=== PATIENT | female | born 1955 | race Caucasian/White ===

== ENCOUNTER 2020-02-07 17:14 | Observation (INO) | payer BC, SELFPAY ==
[2020-02-07 17:20] VITALS: BMI 22.6
[2020-02-07 17:35] VITALS: BP 108/68; PULSE 86; RESP 18; TEMP 36.7; O2SAT 99
--- NOTE | 2020-02-07 17:57 | ECG_ITS ---
Measurements Intervals [place] Rate: 72 P: 55 IA: 143 QRS: 45 QRSD: 94 T: 50 QT: 425 QTc: 467 SINUS RHYTHM NONSPECIFIC T-WAVE ABNORMALITY Compared to ECG 02/07/2020 17:34:43 T-wave abnormality now present ST (T wave) deviation no longer present Electronically Signed On 02-08-2020 11:14:05 CDT by Kenneth Gómez M.D. [id number]
--- NOTE | 2020-02-07 17:57 | XR_ITS ---
WS: [id number] XR chest 1V portable [id number] REASON FOR EXAM: chest pain FINDINGS: The heart and mediastinal interfaces normal. The lung lan are well aerated there are scattered emphysematous changes noted. The overall appeara nce the chest is similar to 09/02/2017. The hilum and apices normal. No pneumothorax or pleural effusion pulmonary edema or mass effect. No osseous abnormalities. XR/XR chest 1V portable [id number] IMPRESSION: Low-grade emphysema this changes
--- NOTE | 2020-02-07 18:04 | ED_ITS ---
HPI - Chest Pain General: Chief Complaint: Chest Pain Stated Complaint: high hr/dizzy/weak Time Seen by Provider: 02/07/20 17:42 Source: patient Mode of arrival: ambulatory Limitations: no limitations History of Present Illness: HPI narrative: Patient is a 64-year-old female patient who presents to the emergency department with complaints of tachycardia, chest pressure, dizziness. She says she has a history of anxiety and is visiting her father from out of town to care for him. She was standing in the kitchen and said she was thinking about the list of all the things she has to do when her heart rate started to go up. Heart rate went up to 150. Because of this she was concerned and presented to the emergency department for evaluation. Of note is that this lady has been on cetirizine with pseudoephedrine for about 2 years. She takes this medication every day complaint: chest discomfort Timing of current episode: now resolved Pain location: substernal Pain radiation: none Severity: mild Relieving factors: nothing Exacerbating factors: nothing Associated symptoms: Reports palpitations; Deny abdominal pain, dyspnea, fever(s), nausea or vomiting Treatment prior to arrival: none Review of Systems General: Reports: 10 or more systems reviewed and unremarkable except in HPI and below Const: Denies: fever(s), chills or body aches ENMT: Denies: throat pain, enlarged tonsils, odynophagia, hoarseness, mouth pain or swelling of lips/tongue Card: Reports: chest pain, palpitations and lightheadedness; Denies: irregular heart rhythm, edema or swelling of feet/ankles Resp: Denies: dyspnea, productive cough or non-productive cough GI: Denies: abdominal pain, nausea or vomiting : Denies: flank pain, difficulty voiding, dysuria, urinary frequency, urinary urgency or urinary hesitancy Musc: Denies: neck pain, back pain or extremity swelling Skin/Breast: Denies: rash, pruritus or erythema Neuro: Denies: headache(s), numbness in extremities or weakness in extremities Endo: Denies: polyuria, polydipsia or tired all the time [facility] ED PFSH: Medical History (Updated 02/08/20 @ 00:02 by Marlene Benjamin MD, [facility]) Anxiety Hypothyroidism Mixed connective tissue disease Surgical History (Updated 02/07/20 @ 21:40 by Surjit Fox MD) History of appendectomy History of hernia surgery Family History (Updated 02/07/20 @ 21:40 by Surjit Fox MD) Denies family history of Diabetes Clotting disorder Dementia Social History (Updated 02/07/20 @ 21:40 by Srujit Fox MD) Smoking and tobacco status: never smoked Alcohol intake: never Substance/Drug Use: never Household members: spouse Housing: House 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 Physical Exam Const: COMMON NORMALS: no acute distress, average body habitus, patient oriented x3, no limitations, healthy appearing, alert and well nourished HENMT: COMMON NORMALS: normocephalic, atraumatic and moist oral mucous membranes HEAD & SCALP: normocephalic and atraumatic Eye: COMMON NORMALS: Equal, round and reactive pupils present, EOMs intact bilaterally, conjunctivae normal and no scleral icterus CONJUNCTIVA: Yes conjunctivae normal PUPIL: Yes Equal, round and reactive pupils present Neck/C-Spine: COMMON NORMALS: no meningeal signs and no JVD Resp: COMMON NORMALS: normal respiratory effort, No retractions, No use of accessory muscles, clear to auscultation bilaterally and percussion normal AUSCULTATION: clear to auscultation bilaterally PERCUSSION: percussion normal Cardio: COMMON NORMALS: no JVD, regular rate, regular rhythm, S1 normal heart sound present, S2 normal heart sound present, No gallops present (Cardio), No clicks present (Cardio), No murmurs present (Cardio), No rub (Cardio) and Peripheral pulses 2+ throughout RATE: regular rate RHYTHM: regular rhythm HEART SOUNDS: S1 normal heart sound present and S2 normal heart sound present PERIPHERAL PULSES: Peripheral pulses 2+ throughout GI: COMMON NORMALS: Normal to inspection, nondistended, normoactive bowel sounds present, Soft to palpation, non-tender, No hepatosplenomegaly present, no masses and no bruits PALPATION: Yes Soft to palpation and Yes No hepatosplenomegaly present : COMMON NORMALS: Yes no CVA tenderness BLADDER/KIDNEY EXAM: Yes no CVA tenderness Back/Pelvis: COMMON NORMALS: no CVA tenderness Extremity: COMMON NORMALS: normal to inspection, full ROM, capillary refill normal, no calf tenderness and no pedal edema Neuro: COMMON NORMALS: patient oriented x3 SENSORIUM/ORIENTATION: Yes alert MENINGEAL SIGNS: Yes no meningeal signs Skin: COMMON NORMALS: no rashes or lesions noted, no wounds, turgor normal, no jaundice, no petechiae and no mottling GENERAL SKIN EXAM: no rashes or lesions noted and turgor normal Course Reevaluation(s): Reevaluation #1: Discussed her lab and imaging findings with her. Her 2-hour delta troponin is significantly elevated and consistent with a non-STEMI. Advised that she will need anticoagulation and further work-up. She will need to be admitted to the hospital. The patient was not expecting a diagnosis but was in agreement with the plan. Time: 20:55 Consultations: Consultation #1: Dr. Fox, hospitalist. He kindly accepted the patient to his service Time: 21:00 Vital Signs: Vital signs: Vital Signs Temperature 98.1 F 02/07/20 23:50 Pulse Rate 74 02/07/20 23:50 Respiratory Rate 22 H 02/07/20 23:50 Blood Pressure 117/71 02/07/20 23:50 Pulse Oximetry 94 02/07/20 23:50 MDM - Chest Pain MDM Narrative: Medical decision making narrative: 64-year-old female patient with no prior cardiac history presents to the emergency department with chest pain, palpitations, and tachycardia. Tachycardia resolved by the time she got to the emergency department. Evaluation in the emergency department is consistent with a non-STEMI with a significantly elevated 2-hour delta troponin. She is therefore being admitted for management and further work-up of her non- STEMI. Differential Diagnosis: Cardiac arrest differential diagnosis: Likely acute massive pulmonary embolism, acute respiratory failure and acute myocardial infarction Medical Records: Attestation: I reviewed the patient's medical records. Lab Data: Attestation: I reviewed the patient's lab results. Labs: Lab Results 02/07/20 02/07/20 02/07/20 Range/Units 18:25 18:25 18:25 WBC 6.2 (4.0-10.0) 10^3/ uL RBC 3.44 L (4.1-5.3) 10^6/u L Hgb 11.2 L (11.5-15.3) g/dL Hct 34.1 L (37.0-47.0) % MCV 99.1 H (81-99) fL MCH 32.6 (28.0-34.0) pg MCHC 32.8 (30.0-36.0) g/dL RDW 12.6 (12.1-15.1) % Plt Count 251 (130-400) 10^3/c mm MPV 9.6 (7.4-10.4) fL Neut % (Auto) 60.6 % Lymph % (Auto) 28.6 % Leon % (Auto) 8.0 % Eos % (Auto) 1.9 % Baso % (Auto) 0.6 % Neut # (Auto) 3.8 (1.8-7.7) 10^3/u L Lymph # (Auto) 1.8 (0.8-4.8) 10^3/u L Leon # (Auto) 0.5 (0.2-0.9) 10^3/u L Eos # (Auto) 0.1 (0.0-0.8) 10^3/u L Baso # (Auto) 0.0 (0.0-0.1) 10^3/u L Nucleated RBC % (a uto) 0 % Nucleated RBCs # 0.0 /100WBC Sodium 134 L (136-145) mmol/L Potassium 4.4 (3.5-5.1) mmol/L Chloride 98 (98-107) mmol/L Carbon Dioxide 24 (22-29) mmol/L Anion Gap 16.4 (5-19) BUN 14 (8-23) mg/dL Creatinine 0.9 (0.5-0.9) mg/dL GFR Calculation 63.4 L (90-130) mL/min Glucose 88 (65-115) mg/dL Calculated Osmolal ity 274 L (285-295) mOsm/k g Calcium 9.6 (8.5-10.5) mg/dL Total Bilirubin 0.2 (0.15-1.2) mg/dL AST 23 (0-32) U/L ALT 14 (0-33) U/L Alkaline Phosphata se 51 (35-105) IU/L Troponin T Baselin e 11 H (0-10) ng/mL Troponin T 120 Min [place] (0-10) ng/mL Delta Troponin T (0-10) ABS# Total Protein 6.4 L (6.6-8.7) g/dL Albumin 4.1 (3.5-5.2) g/dL Globulin 2.3 (1.3-4.6) g/dL Lipase 65 H (13-60) U/L TSH 2.14 (0.27-4.20) uIU/ mL 02/07/20 Range/Units 20:22 WBC (4.0-10.0) 10^3/ uL RBC (4.1-5.3) 10^6/u L Hgb (11.5-15.3) g/dL Hct (37.0-47.0) % MCV (81-99) fL MCH (28.0-34.0) pg MCHC (30.0-36.0) g/dL RDW (12.1-15.1) % Plt Count (130-400) 10^3/c mm MPV (7.4-10.4) fL Neut % (Auto) % Lymph % (Auto) % Leon % (Auto) % Eos % (Auto) % Baso % (Auto) % Neut # (Auto) (1.8-7.7) 10^3/u L Lymph # (Auto) (0.8-4.8) 10^3/u L Leon # (Auto) (0.2-0.9) 10^3/u L Eos # (Auto) (0.0-0.8) 10^3/u L Baso # (Auto) (0.0-0.1) 10^3/u L Nucleated RBC % (a uto) % Nucleated RBCs # /100WBC Sodium (136-145) mmol/L Potassium (3.5-5.1) mmol/L Chloride (98-107) mmol/L Carbon Dioxide (22-29) mmol/L Anion Gap (5-19) BUN (8-23) mg/dL Creatinine (0.5-0.9) mg/dL GFR Calculation (90-130) mL/min Glucose (65-115) mg/dL Calculated Osmolal ity (285-295) mOsm/k g Calcium (8.5-10.5) mg/dL Total Bilirubin (0.15-1.2) mg/dL AST (0-32) U/L ALT (0-33) U/L Alkaline Phosphata se (35-105) IU/L Troponin T Baselin e (0-10) ng/mL Troponin T 120 Min [place] 34.45 H (0-10) ng/mL Delta Troponin T 23.45 H* (0-10) ABS# Total Protein (6.6-8.7) g/dL Albumin (3.5-5.2) g/dL Globulin (1.3-4.6) g/dL Lipase (13-60) U/L TSH (0.27-4.20) uIU/ mL Imaging Data^: CXR: Attestation: I personally reviewed and interpreted this imaging study as follows: My impression: No consolidation, effusion, congestion. No acute findings. EKG Data^: EKG 1: Attestation: I personally reviewed and interpreted this EKG as follows: EKG interpretation date: 02/07/20 EKG interpretation time: 17:35 Prior EKG tracings: not available for review Interpretation: Normal sinus rhythm. Heart rate [address] depression V4 V5 V6 Discharge Plan Discharge Patient Disposition: Admitted As Inpatient Admit Provider: Surjit Fox Clinical Impression: Non-STEMI (non-ST elevated myocardial infarction) Condition: Stable Interventions: ED Discharge Assessment Last Done: 02/07/20 23:37 ED Charges Last Done: 02/07/20 23:37 Discharge Date/Time: 02/07/20 23:40 Coding Level of Care Code ED Cardroom Plastic Card Grader for Chg Fwd Exam Comprehensive
[2020-02-07 18:35] LABS: Basophils % 0.6 %; Eosinophils # 0.1 10^3/uL (0.0-0.8); Eosinophils % 1.9 %; Hematocrit 34.1 % (37.0-47.0); Hemoglobin 11.2 g/dL (11.5-15.3); Lymphocytes # 1.8 10^3/uL (0.8-4.8); Lymphocytes % 28.6 %; Mean Corpuscular HGB Conc 32.8 g/dL (30.0-36.0); Mean Corpuscular Hemoglobin 32.6 pg (28.0-34.0); Mean Corpuscular Volume 99.1 fL (81-99); Mean Platelet Volume 9.6 fL (7.4-10.4); Monocytes # 0.5 10^3/uL (0.2-0.9); Neutrophils # 3.8 10^3/uL (1.8-7.7); Neutrophils % 60.6 %; Nucleated Red Blood Cells % 0 %; Platelet Count 251 10^3/cmm (130-400); Red Blood Count 3.44 10^6/uL (4.1-5.3); Red Cell Distribution Width 12.6 % (12.1-15.1); White Blood Count 6.2 10^3/uL (4.0-10.0)
[2020-02-07 18:54] LABS: Troponin(5th) Baseline 11 ng/mL (0-10)
[2020-02-07 19:02] LABS: Alanine Aminotransferase 14 U/L (0-33); Albumin Level 4.1 g/dL (3.5-5.2); Alkaline Phosphatase 51 IU/L (35-105); Anion Gap 16.4 (5-19); Aspartate Amino Transferase 23 U/L (0-32); Blood Urea Nitrogen 14 mg/dL (8-23); Calcium 9.6 mg/dL (8.5-10.5); Carbon Dioxide 24 mmol/L (22-29); Chloride 98 mmol/L (98-107); Creatinine Clr Calc Pharmacy 62.3928; Globulin 2.3 g/dL (1.3-4.6); Glomerular Filtration Rate 63.4 mL/min (90-130); Glucose 88 mg/dL (65-115); Lipase 65 U/L (13-60); Osmolality Calculated 274 mOsm/kg (285-295); Potassium 4.4 mmol/L (3.5-5.1); Sodium 134 mmol/L (136-145); Thyroid Stimulating Hormone 2.14 uIU/mL (0.27-4.20); Total Bilirubin 0.2 mg/dL (0.15-1.2); Total Protein 6.4 g/dL (6.6-8.7)
--- NOTE | 2020-02-07 19:36 | PC.NURSE ---
UA was collected and sent to lab
--- NOTE | 2020-02-07 19:57 | ECG_ITS ---
Measurements Intervals [place] Rate: 84 P: 50 ID: [id number] QRS: 30 QRSD: 100 T: 47 QT: 424 QTc: 503 SINUS RHYTHM POSSIBLE LEFT ATRIAL ENLARGEMENT [-0.1mV P WAVE IN V1/V2] MODERATE ST DEPRESSION [0.05+ mV ST DEPRESSION] Compared to ECG 09/02/2017 18:01:32 ST (T wave) deviation now present Myocardial infarct finding no longer present Electronically Signed On 02-07-2020 21:02:41 CDT by Renae Lloyd M.D. [id number]
[2020-02-07 20:48] LABS: Troponin 5 2HR 34.45 ng/mL (0-10)
[2020-02-07 21:11] LABS: Troponin 5 2HR Delta 23.45 ABS# (0-10)
--- NOTE | 2020-02-07 21:11 | PM.HP ---
Providers/Chief Complaint Chief Complaint: high hr/dizzy/weak History of Present Illness Bing Garsia is a 64 year old female carries diagnosis of mixed connective tissue disorder, hypothyroidism came in with chief complaint of palpitations. 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 She considers herself fairly active for her age. She tries to eat healthy and is consistent with her medications. She is very careful in taking her anxiolytics and not to mix levothyroxine with it. Diagnostics in the ER revealed normal hemodynamics, EKG showing ST depression in V4 to V6, second troponin with significant delta, she was given first dose of therapeutic Lovenox in the ER At the time of interview heart rate is 90, normal sinus rhythm, normal hemodynamics, she is chest pain-free, Review of Systems Const: Denies: fever(s) or chills Eyes: Denies: change in vision ENMT: Denies: throat pain Card: Reports: palpitations; Denies: edema Resp: Denies: dyspnea GI: Denies: abdominal pain : Denies: flank pain Musc: Denies: neck pain Skin/Breast: Denies: rash Neuro: Denies: headache(s) Psych: Reports: anxiety Endo: Denies: polyuria Josue/Lymph: Denies: easy bruising All/Imm: Denies: urticaria Medications/Allergies Home Medications Medication Instructions Recorded Confirmed Last Taken Type cetirizine-pseudoephedrine 1 tab PO DAILY 02/07/20 02/07/20 02/07/20 History [Zyrtec-D] diphenhydramine HCl [Benadryl] 25 mg PO BEDTIME PRN 02/07/20 02/07/20 Unknown History escitalopram oxalate [Lexapro] 20 mg PO BID 02/07/20 02/07/20 02/07/20 History hydroxychloroquine 200 mg PO BID 02/07/20 02/07/20 02/07/20 History levothyroxine 150 mcg PO DAILY 02/07/20 02/07/20 02/07/20 History Allergies Allergy/AdvReac Type Severity Reaction Status Date / Time Penicillins Allergy ALGY-Hives Verified 02/07/20 17:36 PFSH Acute PFSH: Medical History (Updated 02/07/20 @ 21:42 by Surjit Fox MD) Anxiety Hypothyroidism Mixed connective tissue disease Surgical History (Updated 02/07/20 @ 21:40 by Surjit Fox MD) History of appendectomy History of hernia surgery Family History (Updated 02/07/20 @ 21:40 by Surjit Fox MD) Denies family history of Diabetes Clotting disorder Dementia Social History (Updated 02/07/20 @ 21:40 by Surjit Fox MD) Smoking and tobacco status: never smoked Alcohol intake: never Substance/Drug Use: never Household members: spouse Housing: House 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 Vitals/I&O/Wt Last Vital Signs Temp 98.0 F 02/07/20 17:35 Pulse 86 02/07/20 17:35 Resp 18 02/07/20 17:35 BP 108/68 02/07/20 17:35 Pulse Ox 99 02/07/20 17:35 Weight last 48 hrs Weight 63.503 kg Physical Exam Narrative: EXAM NARRATIVE: Head to toe examination Patient sitting comfortably in her bed without any active discomfort S1, S2, sinus tachycardia ranging between 90-1 10 Abdomen soft nontender nondistended bowel sound present No signs of CHF No neurological deficit Lungs are clear to auscultation EOMI, PERRLA No skin rash No lower extremity edema Appropriate mood and affect Dry buccal mucosal membrane Data : 02/07/20 18:25 02/07/20 18:25 A&P Assessment and plan (1) Palpitations: Status: Acute (2) Sinus tachycardia: Status: Acute (3) Dehydration: Status: Acute (4) Unstable angina: Status: Acute Additional A&P Information Palpitation with unstable angina Low risk for PE, no previous history of coronary We will check d-dimer She appears dehydrated which could be contributing to sinus tachycardia She is here full dose Lovenox in the ER currently chest pain-free EKG showing nonspecific ST depressions in V4 and V5, second troponin significant delta With get serial EKGs and wait for 6-hour troponin, load her with aspirin Plavix, check TSH and lipid pro Cardiolite stress test in the morning, Dehydration: We will keep her on half-normal saline fluid resuscitation Mixed connective tissue disorder with Enriqueta hypothyroidism Continue levothyroxine, check TSH, I would continue her Plaquenil for now Full code DVT prophylaxis: Lovenox full dose given in the ER, N.p.o. after mid Attestations Medical Necessity Statement*: Anticipating discharge in less than 48 hours needs cardiac stress test to rule out coronary ischemia Time Spent in Patient Care: 50 Coding Level of Care Code Acute Mechanics Handyman for Chg Fwd Diagnoses Palpitations R00.2 Sinus tachycardia R00.0 Dehydration E86.0 Unstable angina I20.0
[2020-02-07] MEDS: enoxaparin 60 mg/0.6 mL Syringe SUBCUT (21:35)
--- NOTE | 2020-02-07 23:30 | PC.NURSE ---
Patient arrived from ER via wheelchair and was placed on telemetry. Patient is alert and oriented, placed on telemetry. Patient oriented to the room, call light within reach, bed in low position, and side rails up x2. Will continue to monitor.
[2020-02-07 23:37] VITALS: BP 110/76; PULSE 82; RESP 18; O2SAT 99
[2020-02-07 23:49] LABS: D Dimer <= 0.27 ug/mIFEU (0-0.59); Thyroid Stimulating Hormone 5.18 uIU/mL (0.27-4.20)
[2020-02-07 23:50] VITALS: BP 117/71; PULSE 74; RESP 22; TEMP 36.7; O2SAT 94
[2020-02-07 23:52] VITALS: BMI 24.1
[2020-02-08] MEDS: aspirin 325 mg EC Tablet PO (00:06)
[2020-02-08] MEDS: clopidogrel 300 mg Tablet PO (00:06)
[2020-02-08 00:49] LABS: Troponin 5 6HR 34.93 ng/mL (0-10)
[2020-02-08] MEDS: sodium chloride 0.45% 1,000 ML 30 ML IV (00:52)
[2020-02-08 01:27] LABS: Troponin 5 6HR Delta 23.93 ng/L (0-12)
[2020-02-08 01:41] VITALS: PULSE 65
[2020-02-08 04:16] VITALS: BP 112/71; PULSE 71; RESP 14; TEMP 36.6; O2SAT 96
--- NOTE | 2020-02-08 06:00 | ECG_ITS ---
NAME OF STUDY: LEXISCAN SESTAMIBI STRESS TEST INDICATION: Chest Pain PROCEDURE: At the baseline, the blood pressure was 117/69 mmHg, oxygen saturation 97% with a heart rate of 84 bpm. The electrocardiogram showed normal sinus rhythm, normal axis with non specific ST depression and T wave inversion noted in lead II III, aVF, V5 and V6. The Lexiscan was infused over a period of 20 seconds. A total of 0.4 milligrams of Lexiscan was infused. The stress phase was continued for a total of 5 minutes. Heart rate at the end of the stress phase was 94 bpm, oxygen saturation 97% with a blood pressure 119/67 mmHg. The EKG at the peak infusion revealed 1/2-[address] depression and T wave inversion in inferolateral leads. Sestamibi was injected 20 seconds after the Lexiscan infusion. Blood pressure at the end of the recovery phase was 118/65 mmHg, oxygen saturation 98% with a heart rate of 97 beats per minute. CONCLUSION: 1. Equivocal EKG changes with LexiScan infusion given baseline ST-T wave changes. 2. No LexiScan induced chest pain or cardiac arrhythmia. 3. Normal blood pressure and heart rate response. 4. Sestamibi/sestamibi perfusion scan pending; see separate report. Electronically Signed On 02-08-2020 13:17:28 CDT by Lizzy Rock M.D. [id number]
--- NOTE | 2020-02-08 06:06 | PC.NURSE ---
End of Shift: Patient remains AxO x3. Patient had a uneventful shift and rested well. Patient is aware of stress test and has been NPO.
--- NOTE | 2020-02-08 07:00 | PC.NURSE ---
Bedside shift report performed with two RNs. Patient A/O, kept NPO for stress test. Patient does not have any specific needs or questions at this time.
[2020-02-08] MEDS: regadenoson 0.4 Mg/5 ml Syringe IVP (08:45)
[2020-02-08 08:48] VITALS: BP 127/57; PULSE 100
[2020-02-08 09:28] VITALS: BP 127/77; PULSE 79; RESP 20; TEMP 37; O2SAT 98
[2020-02-08] MEDS: escitalopram 10 mg Tablet 20 MG PO (09:29)
[2020-02-08] MEDS: hydroxychloroquine 200 mg Tablet PO (09:30)
[2020-02-08] MEDS: levothyroxine 150 mcg Tablet PO (09:30)
[2020-02-08] MEDS: aspirin 81 mg EC Tablet PO (09:30)
[2020-02-08] MEDS: atorvastatin 40 mg Tablet 80 MG PO (09:30)
[2020-02-08] MEDS: clopidogrel 75 mg Tablet PO (09:30)
[2020-02-08] MEDS: enoxaparin 60 mg/0.6 mL Syringe SUBCUT (09:32)
--- NOTE | 2020-02-08 10:22 | PC.CHAP ---
Pastoral Care Encounter/Spiritual Assessment Type of Contact [] Declined treasury associate visit [] Patient/Family/Request visit [] Outpatient visit [] Follow-up visit [] Physician referral [] Code/Alert [x] Routine visit [] Staff referral [] Actively dying [] Patient sleeping [] Family support [] [] Out of room [] Palliative care [] [] Receiving care in room [] Pre-surgical visit [] Trauma [] Long length of stay [] ICU visit [] Other: Relational/Emotional Strength [x] Patient feels connected with others/family/visitors/staff [] Distress [] Loneliness/isolation [] Abandonment Spirituality of Patient [x] Person of Lisa [x] Attends Quaker of their Lisa [x] Believes in Prayer [x] Reads Bible or Religion materials [] There are Spiritual issues to be addressed Glass Sander Belt Interventions [x] Prayer [x] Active listening x[] Non-anxious presence [x] Spiritual/emotional support [] Crisis/trauma care [x] Spiritual counseling [] Bereavement support [] Provided bereavement packet [] Provided Bible/devotional materials [] Provided toy/stuffed animal, coloring book to patient or family member [] Provided Communion [] Anointing/[place] [] Salvation [x] Completed spiritual assessment [] Other: Impact on Illness or Injury [] Angry [] Fearful [] Anxious [] Often cries [] Exhaustion [] Unable to work [] Unable to attend moravian [] Unable to walk/stand [] Unable to read [] Unable to drive [] Unable to eat/drink [] Unable to sleep [] Unable to be with family [] Patient intubated [x] Other: Summary Patient is a resident of [place] and is in [place] attending to her father. Patient is strong in her lisa and commitment to the [place] in her life. Time spent with patient 10 minutes
--- NOTE | 2020-02-08 11:25 | PC.NURSE ---
Dr. Bernal at bedside. Physician requests STAT Trop to evaluate if enzymes are still trending up. Nurse to continue to monitor.
--- NOTE | 2020-02-08 11:26 | P.PN_ITS ---
Vitals/I&O/Wt Last Vital Signs Temp 98.6 F 02/08/20 09:28 Pulse 79 02/08/20 09:28 Resp 20 H 02/08/20 09:28 BP 127/77 02/08/20 09:28 Pulse Ox 98 02/08/20 09:28 02/07/20 02/08/20 02/08/20 22:59 06:59 14:59 Intake Total 969 / 969 Balance 969 / 969 Weight last 48 hrs Weight 67.676 kg Weight 67.948 kg Weight 63.503 kg Data : 02/07/20 18:25 02/07/20 18:25 A&P Assessment and plan (1) Palpitations: Status: Acute (2) Sinus tachycardia: Status: Acute (3) Dehydration: Status: Acute (4) Unstable angina: Status: Acute Additional A&P Information Palpitation with unstable angina Low risk for PE, no previous history of coronary We will check d-dimer She appears dehydrated which could be contributing to sinus tachycardia She is here full dose Lovenox in the ER currently chest pain-free EKG showing nonspecific ST depressions in V4 and V5, second troponin significant delta With get serial EKGs and wait for 6-hour troponin, load her with aspirin Plavix, check TSH and lipid pro Cardiolite stress test in the morning, Dehydration: We will keep her on half-normal saline fluid resuscitation Mixed connective tissue disorder with Enriqueta hypothyroidism Continue levothyroxine, check TSH, I would continue her Plaquenil for now Full code DVT prophylaxis: Lovenox full dose given in the ER, N.p.o. after mid Coding Level of Care Code Acute Staking Technician for Chg Fwlibertad Diagnoses Palpitations R00.2 Sinus tachycardia R00.0 Dehydration E86.0 Unstable angina I20.0
[2020-02-08 12:13] LABS: C Reactive Protein 0.5 mg/L (0.0-4.9)
[2020-02-08 12:16] LABS: Troponin T (5th) Once 17 ng/mL (0-10)
[2020-02-08 12:23] LABS: Free T4 Free Thyroxine 1.42 ng/dL (0.82-1.77)
[2020-02-08 12:53] LABS: Erythrocyte Sedimentation Rate 23 mm/hr (0-15)
[2020-02-08 13:00] VITALS: BP 124/81; PULSE 75; RESP 18; O2SAT 96
--- NOTE | 2020-02-08 13:48 | P.DS_ITS ---
Discharge Providers Date of Admission: 02/07/20 21:14 Date of Discharge: February 08, 2020 Attending Provider at Admission: Surjit Fox MD Attending Provider at Discharge: Poncho Bernal MD Diagnoses at Discharge Discharge Diagnosis (1) Palpitations: Status: Acute (2) Sinus tachycardia: Status: Acute (3) Dehydration: Status: Acute (4) Unstable angina: Status: Acute (5) Anxiety: Status: Acute (6) Mixed connective tissue disease: Status: Acute Reason for Visit Reason for Visit: high hr/dizzy/weak Hospital Course Discharge Summary: Bing Garsia is a 64 year old female carries diagnosis of mixed connective tissue disorder, hypothyroidism came in with chief complaint of palpitations. 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 She considers herself fairly active for her age. She tries to eat healthy and is consistent with her medications. She is very careful in taking her anxiolytics and not to mix levothyroxine with it. Diagnostics in the ER revealed normal hemodynamics, EKG showing ST depression in V4 to V6, second troponin with significant delta, she was given first dose of therapeutic Lovenox in the ER. She was admitted to [facility] and underwent Lexiscan stress test on 02/07 which was negative for any active ischemia. She did not have any event of tachycardia while admitted and Telemetry also showed NSR. Due to her h/o Enriqueta's and connective tissue disorder ESRF, CRP and thyroid functions were checked which were all in normal limits. Due to her presenting c/o palpitations she has been arranged for event monitor to r/o arrythmia. She is being discharged in hemodynamic stable condition with advice to follow up with her PCP in 2 weeks Physical Exam Narrative: EXAM NARRATIVE: General: No acute distress, AO x3 HEENT: PERRLA, pupils bilaterally equal and reactive Chest: Normal vesicular breath sounds, no added sounds, equal good air entry bilaterally CVS: S1-S2 regular, no murmurs, no tachycardia, no gallops, no rubs Abdomen: Soft, nontender, no organomegaly, bowel sounds present Neuro: No focal deficits, no facial deformity, AO x3, power 5/5 in all limbs Discharge Data Data Completed and Pending: Completed Studies During Hospitalization Category Date Time Status Sestamibi Stress Test Request Routi ne Exams 02/08/20 06:00 Completed XR chest 1V alfa ble [id number] Stat Exams 02/07/20 17:57 Completed NM vishnu perf SPECT r/s* [id number] Routin e Nuc Med 02/08/20 23:07 Completed CV echo complete* [id number] Routine Ultrasound 02/08/20 23:07 Completed Pending at discharge Category Date Time Status Sestamibi Stress Test Request Routi ne Exams 02/07/20 23:07 Stop Req Labs from last 24 hours 02/08/20 02/08/20 02/08/20 11:38 11:38 11:38 WBC RBC Hgb Hct MCV MCH MCHC RDW Plt Count MPV Neut % (Auto) Lymph % (Auto) [place] % (Auto) Eos % (Auto) Baso % (Auto) Neut # (Auto) Lymph # (Auto) [place] # (Auto) Eos # (Auto) Baso # (Auto) Nucleated RBC % (a uto) Nucleated RBCs # ESR 23 H D-Dimer Sodium Potassium Chloride Carbon Dioxide Anion Gap BUN Creatinine GFR Calculation Glucose Calculated Osmolal ity Calcium Total Bilirubin AST ALT Alkaline Phosphata se Troponin I 6 Hour Troponin I Hi Sens Del Troponin T Gen 5 n g/L 17 H Troponin T Baselin e Troponin T 120 Min [place] Delta Troponin T C-Reactive Protein 0.5 Total Protein Albumin Globulin Lipase TSH Free T4 1.42 Free T3 2.0 02/08/20 02/07/20 02/07/20 00:26 23:20 23:20 WBC RBC Hgb Hct MCV MCH MCHC RDW Plt Count MPV Neut % (Auto) Lymph % (Auto) [place] % (Auto) Eos % (Auto) Baso % (Auto) Neut # (Auto) Lymph # (Auto) [place] # (Auto) Eos # (Auto) Baso # (Auto) Nucleated RBC % (a uto) Nucleated RBCs # ESR D-Dimer <= 0.27 Sodium Potassium Chloride Carbon Dioxide Anion Gap BUN Creatinine GFR Calculation Glucose Calculated Osmolal ity Calcium Total Bilirubin AST ALT Alkaline Phosphata se Troponin I 6 Hour 34.93 H Troponin I Hi Sens Del 23.93 H* Troponin T Gen 5 n g/L Troponin T Baselin e Troponin T 120 Min [place] Delta Troponin T C-Reactive Protein Total Protein Albumin Globulin Lipase TSH 5.18 H Free T4 Free T3 02/07/20 02/07/20 02/07/20 20:22 18:25 18:25 WBC RBC Hgb Hct MCV MCH MCHC RDW Plt Count MPV Neut % (Auto) Lymph % (Auto) [place] % (Auto) Eos % (Auto) Baso % (Auto) Neut # (Auto) Lymph # (Auto) [place] # (Auto) Eos # (Auto) Baso # (Auto) Nucleated RBC % (a uto) Nucleated RBCs # ESR D-Dimer Sodium 134 L Potassium 4.4 Chloride 98 Carbon Dioxide 24 Anion Gap 16.4 BUN 14 Creatinine 0.9 GFR Calculation 63.4 L Glucose 88 Calculated Osmolal ity 274 L Calcium 9.6 Total Bilirubin 0.2 AST 23 ALT 14 Alkaline Phosphata se 51 Troponin I 6 Hour Troponin I Hi Sens Del Troponin T Gen 5 n g/L Troponin T Baselin e 11 H Troponin T 120 Min [place] 34.45 H Delta Troponin T 23.45 H* C-Reactive Protein Total Protein 6.4 L Albumin 4.1 Globulin 2.3 Lipase 65 H TSH 2.14 Free T4 Free T3 02/07/20 18:25 WBC 6.2 RBC 3.44 L Hgb 11.2 L Hct 34.1 L MCV 99.1 H MCH 32.6 MCHC 32.8 RDW 12.6 Plt Count 251 MPV 9.6 Neut % (Auto) 60.6 Lymph % (Auto) 28.6 [place] % (Auto) 8.0 Eos % (Auto) 1.9 Baso % (Auto) 0.6 Neut # (Auto) 3.8 Lymph # (Auto) 1.8 [place] # (Auto) 0.5 Eos # (Auto) 0.1 Baso # (Auto) 0.0 Nucleated RBC % (a uto) 0 Nucleated RBCs # 0.0 ESR D-Dimer Sodium Potassium Chloride Carbon Dioxide Anion Gap BUN Creatinine GFR Calculation Glucose Calculated Osmolal ity Calcium Total Bilirubin AST ALT Alkaline Phosphata se Troponin I 6 Hour Troponin I Hi Sens Del Troponin T Gen 5 n g/L Troponin T Baselin e Troponin T 120 Min [place] Delta Troponin T C-Reactive Protein Total Protein Albumin Globulin Lipase TSH Free T4 Free T3 Addt'l Data from Hospital Stay: ECHO CONCLUSIONS 1. Normal left ventricular size, systolic function and wall thickness, with no regional wall motion abnormalities. Left ventricular ejection fraction is estimated at 64 %. Normal diastolic function. 2. Normal right ventricular size and systolic function, RVSP 29.2 mmHg. 3. Trace to mild mitral and tricuspid valve regurgitation. 4. No prior similar studies to compare. Procedures Performed: Stress Test IMPRESSIONS 1. Myocardial perfusion imaging is normal. 2. Overall left ventricular systolic function is normal without regional wall motion abnormalities. 3. The left ventricular ejection fraction is normal with a value of 74%. 4. Transient Ischemia Dilatation elevated at 1.3. This may represent subendocardial ischemia or hypertensive response. Clinical correlation is advised. 5. No prior similar studies to compare. Vitals: Last Vital Signs Temp 98.6 F 02/08/20 09:28 Pulse 75 02/08/20 13:00 Resp 18 02/08/20 13:00 BP 124/81 02/08/20 13:00 Pulse Ox 96 02/08/20 13:00 Discharge Plan Discharge Patient Disposition: Home, Self-Care Condition: Stable Prescriptions: New aspirin [Adult Low Dose Aspirin] 81 mg tablet,delayed release (DR/EC) 81 mg PO DAILY Qty: 30 RF: 0 atorvastatin 40 mg Tablet 80 mg PO DAILY Qty: 30 RF: 0 Continued Zyrtec-D 5-120 mg Tablet Extended Release 12 Hr 1 tab PO DAILY RF: 0 Benadryl 25 mg Capsule 25 mg PO BEDTIME PRN (Reason: Sleep) RF: 0 levothyroxine 150 mcg tablet 150 mcg PO DAILY RF: 0 hydroxychloroquine 200 mg tablet 200 mg PO BID RF: 0 Lexapro 20 mg Tablet 20 mg PO BID RF: 0 Discharge Orders: Discharge Order (Routine); Ordered 02/08/20 Ordered By: Poncho Bernal Other Ambulatory Orders: [place] 2 week event monitor (Routine) Timeframe: 1 Week Facility: [facility] - Location: [facility] Ordered By: Poncho Bernal Discharge Diet: Cardiac Discharge Activity: Resume usual activity Discharge Attestations Time Spent in Discharge Care*: greater than 30 min Specific Discharge Activities: Specific discharge activities: educating patient, discussing with pcp/other providers, documenting/other paperwork and evaluating patient/reviewing data Status at Discharge: Cognitive status at discharge: cognitively intact , Behavioral status at discharge: cooperative , Functional status at discharge: independent ambulation Overall status at discharge: patient is back to baseline Quality Metrics Clinical Quality Measures During this hospital stay, did patient experience: None Coding Level of Care Code 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
[2020-02-08 14:27] VITALS: BP 124/81; PULSE 75; RESP 18; TEMP 37; O2SAT 96
[2020-02-08 14:54] LABS: Chol HDL Ratio 2.79 mg/dL (0.0-4.40); Cholesterol 226 mg/dL (0-200); HDL Cholesterol 81 mg/dL (60-100); LDL Cholesterol Calculated 126 mg/dL (50-129); Triglycerides 96 mg/dL (0-150); VLDL Cholestrol Calculation 19 mg/dL (0-30)
--- NOTE | 2020-02-08 15:06 | PC.NURSE ---
Discharge instructions given per the physician's orders. Patient verbalized understanding of information and did not have any further questions. Family has been notified of discharge.
--- NOTE | 2020-02-08 23:07 | NMCV_ITS ---
NM vishnu perf SPECT r/s* [id number] Bing Garsia Age: 64 Gender: F : 1955 Exam Date: 02/08/2020 23:07 Ordering Phys: Surjit Fox MD Technologist: ESEQUIEL Carpenter Exam Location: [facility] Indications: HIGH HR DIZZY AND WEAK STRESS TEST [facility] IMAGE PROTOCOL Rest/Stress 1 Lexiscan Day Radiopharmaceutical Dose (mCi) Administration Site Administered by Rest: Tc-99m 10.8 IV ESEQUIEL Golden Sestamibi Stress:Tc-99m 32.1 IV ESEQUIEL Golden Sestamibi Rest: 02/08/2020 60 Discovery 630 Stress: 02/08/2020 30 Discovery 630 0.4mg Lexiscan. Images obtained in supine and prone position. SPECT RESULTS Technical Quality: Excellent Raw Data Analysis: Normal Image Corrections: No attenuation or motion correction applied Summed Stress Score: 1 Summed Rest Score: 1 Summed Difference Score: 0 PERFUSION FINDINGS Very small size perfusion abnormality of mild severity of apical anterior wall on rest images with improved tracer uptake on stress images. The suggestive of attenuation artifact. FUNCTIONAL RESULTS (calculated via Gated SPECT) Stress Image LV EF (%): 74 Stress EDV (mL):80 TID: 1.34 Stress ESV (mL):21 FUNCTIONAL FINDINGS: The left ventricle is normal in size. Transient Ischemia Dilatation of 1.3. There is normal left ventricular systolic function. The left ventricular ejection fraction is normal with a value of 74%. There is normal left ventricular wall thickening. Normal end-diastolic and end-systolic volumes. IMPRESSIONS 1. Myocardial perfusion imaging is normal. 2. Overall left ventricular systolic function is normal without regional wall motion abnormalities. 3. The left ventricular ejection fraction is normal with a value of 74%. 4. Transient Ischemia Dilatation elevated at 1.3. This may represent subendocardial ischemia or hypertensive response. Clinical correlation is advised. 5. No prior similar studies to compare. Lizzy Rock MD (Electronically Signed) Final Date: 08 February 2020 11:56 S
--- NOTE | 2020-02-08 23:07 | USCV_ITS ---
Ady Bnig Age: 64 Gender: F : 1955 Exam Date: 02/08/2020 06:51 Ordering Phys: Surjit Fox MD Technologist: Nazia Johnston Exam Location: [facility] [place] Indication: ANGINA BP: 112 / 71 HR: 70 Rhythm: Sinus Technical Quality: Adequate MEASUREMENTS (Male / Female) Normal Values 2D ECHO LV Diastolic Diameter PLAX 4.3 cm 4.2 - 5.9 / 3.9 - 5.3 cm LV Systolic Diameter PLAX 3.0 cm LV Chamber Size 3.6 cm IVS Diastolic Thickness 0.9 cm 0.6 - 1.0 / 0.6 - 0.9 cm IVS Systolic Thickness 1.8 cm LVPW Diastolic Thickness 1.3 cm 0.6 - 1.0 / 0.6 - 0.9 cm LVPW Systolic Thickness 1.3 cm RV Chamber Size 3.6 cm LVOT Diameter 2.0 cm LV Ejection Fraction 2D Teich 57.7 % LV Ejection Fraction MOD 2C 63.0 % LV Ejection Fraction 2C AL 63.8 % LA Diameter 2.7 cm LA Width 2.3 cm LA Height 3.9 cm RA Width 3.5 cm RA Height 4.1 cm Aorta at Sinotubular Diameter 3.2 cm M-MODE LV Diastolic Diameter MM 5.1 cm 4.2 - 5.9 / 3.9 - 5.3 cm LV Systolic Diameter MM 3.0 cm LV Ejection Fraction MM Teich 73.1 % IVS Diastolic Thickness MM 1.1 cm 0.6 - 1.0 / 0.6 - 0.9 cm IVS Systolic Thickness MM 1.4 cm LVPW Diastolic Thickness MM 1.3 cm 0.6 - 1.0 / 0.6 - 0.9 cm LVPW Systolic Thickness MM 1.4 cm RV Diastolic Diameter MM 1.0 cm Aortic Annulus Diameter 2.8 cm LA Ao Ratio MM 1.5 MV E Point Septal Separation 0.4 cm DOPPLER AV Peak Velocity 177.0 cm/s LVOT Peak Velocity 91.0 cm/s AV Area Cont Eq vti 2.0 cm squared AV Area Cont Eq pk 1.6 cm squared MV Area PHT 3.7 cm squared Mitral E to A Ratio 1.2 MV E' Velocity 10.0 cm/s Mitral E to MV E' Ratio 7.9 Mitral E to LV E' Lateral Ratio 8.6 Mitral E to LV E' Septal Ratio 7.3 TR Peak Velocity 256.0 cm/s TR Peak Gradient 26.1 mmHg TR Mean Velocity 179.3 cm/s TR Mean Gradient 15.2 mmHg TR Velocity Time Integral 62.7 cm TV Peak E Velocity 73.0 cm/s Right Atrial Pressure 3.0 mmHg Pulmonary Artery Systolic Pressu 29.2 mmHg PV Peak Velocity 57.0 cm/s RV Acceleration Time 0.2 s RV Ejection Time 0.3 s RV AcT/ET 0.6 FINDINGS Left Ventricle Normal left ventricular size, systolic function and wall thickness, with no regional wall motion abnormalities. Left ventricular ejection fraction is estimated at 64 %. Normal diastolic function. Right Ventricle Normal right ventricular size and systolic function, RVSP 29.2 mmHg. Right Atrium Normal right atrial size. Right atrial pressure estimated at 3 mmHg. Left Atrium Normal left atrial size. Mitral Valve Structurally normal mitral valve. No mitral valve stenosis. Trace to mild mitral valve regurgitation. Aortic Valve Structurally normal trileaflet aortic valve. No aortic valve stenosis. Trace aortic valve regurgitation. Tricuspid Valve Structurally normal tricuspid valve. Trace to mild tricuspid valve regurgitation. Pulmonic Valve Pulmonic valve not well visualized. Trace pulmonary valve regurgitation. Pericardium No pericardial effusion. Aorta Normal sized aortic root. CONCLUSIONS 1. Normal left ventricular size, systolic function and wall thickness, with no regional wall motion abnormalities. Left ventricular ejection fraction is estimated at 64 %. Normal diastolic function. 2. Normal right ventricular size and systolic function, RVSP 29.2 mmHg. 3. Trace to mild mitral and tricuspid valve regurgitation. 4. No prior similar studies to compare. Lizzy Rock MD (Electronically Signed) Final Date: 08 February 2020 13:07 S
== END 2020-02-08 15:08 | disposition home or self-care (01) ==
LOC: ER 17:56 → CSU 21:52
PROVIDERS: Family Medicine; Admitting Provider Internal Medicine; Visit Provider Student in an Organized Health Care Education/Training Program
DX: R00.2 Palpitations (principal); R00.0 Tachycardia, unspecified; E86.0 Dehydration; I20.0 Unstable angina; F41.9 Anxiety disorder, unspecified; E03.9 Hypothyroidism, unspecified; M35.1 Other overlap syndromes
CPT/HCPCS: 12345; 36415; 71045; 78452; 80053; 80061; 83690; 84439; 84443; 84481; 84484; 85025; 85378; 85651; 86140; 93005; 93017; 93306; 96372; 99282; 99285; A9500; G0378; J1650; J2785

== ENCOUNTER → 2024-11-22 13:52 | Outpatient (BNVA) | payer MEDICARE, OTHER, SELFPAY | PROVIDERS: PCP Family Medicine; Visit Provider Specialist | DX: Z01.818 Encounter for other preprocedural examination (principal); M16.11 Unilateral primary osteoarthritis, right hip | CPT/HCPCS: 36415; 73502; 80053; 81001; 85025; 99214 ==

== ENCOUNTER → 2025-01-09 09:16 | Outpatient (BNVA) | payer MEDICARE, OTHER, SELFPAY | PROVIDERS: PCP Family Medicine; Visit Provider Family Medicine | DX: Z01.818 Encounter for other preprocedural examination (principal) | CPT/HCPCS: 80053; 81003; 85007; 85027; 93005 ==

== ENCOUNTER 2025-01-18 13:59 | Observation (INO) | payer MEDICARE, OTHER, SELFPAY ==
[2025-01-18] VITALS (19 sets, daily range): BP systolic 86–106; BP diastolic 47–70; PULSE 67–88; RESP 15–18; TEMP 36.3–36.8; O2SAT 93–100; BMI 23.0
--- NOTE | 2025-01-18 10:24 | ANES.PREANE2 ---
Pre-Anesthetic Assessment Height/Weight: Height 1.63 m Weight 60.781 kg Temp Pulse Resp BP Pulse Ox O2 Del Method 98.3 F 72 18 106/70 94 Room Air 01/18/25 10:06 01/18/25 10:06 01/18/25 10:06 01/18/25 10:06 01/18/25 10:06 01/18/25 10:06 Operation Date: 01/18/25 11:10 Proposed Procedures p Total Hip Arthroplasty(Right) - Jennifer Smith MD Familial anesthetic complications: None Was Beta Kilo taken within 24 hours: N/A Was Clonidine taken within 24 hours: N/A Last intake: Intake Last Liquid Date 01/17/25 Last Liquid Time 23:30 Last Solid Date 01/17/25 Last Solid Time 23:30 Social No alcohol and No tobacco Exam alert, oriented x 3, clear to auscultation bilaterally (coarse breath sounds, mild wheeze) and regular rate & rhythm Airway Mallampati: Class II Dentition: full Pulmonary Pneumonia in July, still not back to baseline. Chronic increase in mucus production and cough since episode CV/HEM Arrythmia (quick HR) EKG 01/09/25 SINUS RHYTHM NONSPECIFIC T-WAVE ABNORMALITY Compared to ECG 02/07/2020 23:46:02 No significant changes ECHO 02/08/20 1. Normal left ventricular size, systolic function and wall thickness, with no regional wall motion abnormalities. Left ventricular ejection fraction is estimated at 64 %. Normal diastolic function. 2. Normal right ventricular size and systolic function, RVSP 29.2 mmHg. 3. Trace to mild mitral and tricuspid valve regurgitation. 4. No prior similar studies to compare. SESTAMIBI STRESS TEST 02/08/20 1. Equivocal EKG changes with LexiScan infusion given baseline ST-T wave changes. 2. No LexiScan induced chest pain or cardiac arrhythmia. 3. Normal blood pressure and heart rate response. 4. Sestamibi/sestamibi perfusion scan pending; see separate report. MYOCARDIAL PERFUSION SCAN 02/08/20 1. Myocardial perfusion imaging is normal. 2. Overall left ventricular systolic function is normal without regional wall motion abnormalities. 3. The left ventricular ejection fraction is normal with a value of 74%. 4. Transient Ischemia Dilatation elevated at 1.3. This may represent subendocardial ischemia or hypertensive response. Clinical correlation is advised. 5. No prior similar studies to compare. Metabolic Thyroid Disease Anesthetic Plan ASA status: 3 Anesthesia: Regional (specify below) Risk of > 500 ml blood loss (7ml/kg in children): Yes, adequate IV access and fluids planned Medications/Allergies Home Medications ?Medication ?Instructions ?Recorded ?Confirmed ?Last Taken ?Type escitalopram oxalate 20 mg tablet 20 mg PO BID 02/07/20 01/17/25 01/17/25 History (Lexapro) aspirin 81 mg tablet,delayed 81 mg PO DAILY #30 tabs 02/08/20 01/17/25 01/10/25 Rx release (Adult Low Dose Aspirin) cholecalciferol (vitamin D3) 125 125 mcg PO DAILY 01/09/25 01/17/25 01/17/25 History mcg (5,000 unit) capsule ferrous sulfate 137 mg (45 mg 137 mg PO DAILY 01/09/25 01/17/25 01/15/25 History iron) tablet,extended release flecainide 50 mg tablet 50 mg PO QDAY 01/09/25 01/17/25 01/17/25 History folic acid 1 mg tablet 1 mg PO QDAY 01/09/25 01/17/25 01/17/25 History levothyroxine 175 mcg tablet 175 mcg PO QDAY 01/09/25 01/17/25 01/17/25 History loratadine 10 mg tablet 10 mg PO DAILY 01/09/25 01/17/25 01/17/25 History multivitamin 1 tab PO DAILY 01/09/25 01/17/25 01/16/25 History spironolactone 25 mg tablet 25 mg PO QDAY 01/09/25 01/17/25 01/17/25 History tramadol 50 mg tablet 50 mg PO .qhs 01/09/25 01/17/25 01/17/25 History Allergies Allergy/AdvReac Type Severity Reaction Status Date / Time Penicillins Allergy ALGY-Hives Verified 01/09/25 09:04 [facility] Anesthesia Medical History Anxiety Mixed connective tissue disease Hypothyroidism Surgical History History of appendectomy History of hernia surgery Family History Denies family history of Diabetes Clotting disorder Dementia Social History Smoking and tobacco/nicotine status: never used tobacco/nicotine Alcohol intake: never Substance/Drug Use: never Household members: spouse Housing: House 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
[2025-01-18] MEDS: CELEcoxib 200 mg Capsule 400 MG PO (10:26)
[2025-01-18] MEDS: gabapentin 300 mg Capsule PO (10:26)
[2025-01-18] MEDS: acetaminophen 1,000 MG/100 ML PIGGYBACK 400 MG IV ×3 (10:30→23:44)
[2025-01-18] MEDS: sodium chloride 0.9% 1,000 ML 30 ML IV (10:30)
--- NOTE | 2025-01-18 10:59 | W.PM.OPSUD ---
Surgery/Procedure H&P Update DATE OF PROCEDURE: January 18, 2025 DATE H&P PERFORMED: 01/09/25 H&P UPDATE INFORMATION: I have reviewed H&P completed within last 30 days, I have examined patient prior to procedure, No changes to prior documentation, H&P is in [facility] EMR on date indicated and Risks and benefits of the procedure reviewed PREOP DIAGNOSIS: Right osteoarthritis hip PLANNED PROCEDURE: Operation Date: 01/18/25 11:10 Proposed Procedures p Total Hip Arthroplasty(Right) - Jennifer Smith MD Related Problem List Diagnoses (1) Primary osteoarthritis of right hip:
[2025-01-18] MEDS: clindamycin 900 MG/50 ML PREMIX 100 MG IV ×2 (11:30→19:56)
[2025-01-18] MEDS: tranexamic acid 1,000 mg/10mL SDV 1000 MG IV (11:30)
[2025-01-18] MEDS: BUPivacaine 0.5% INJ 10 mL 20 ML INJECTION (12:25)
[2025-01-18] MEDS: BUPivacaine liposome 13.3 mg/mL SDV 20 mL 266 MG INJECTION (12:25)
[2025-01-18] MEDS: VANCOMYCIN ADD-Vantage 1,000 MG VIAL 1000 MG XX (12:26)
--- NOTE | 2025-01-18 14:11 | XRR_ITS ---
PROCEDURE INFORMATION: Exam: XR Pelvis Exam date and time: 01/18/2025 2:10 PM Age: 69 years old Clinical indication: Device placement; Other: Rustam; Prior surgery; Surgery date: Post-operative (0-2 days); Additional info: S/P rustam, low ap pelvis TECHNIQUE: Imaging protocol: Radiologic exam of the pelvis. Views: 1 or 2 view. Total images: 2 COMPARISON: CR XR hip RT 2-3V wo/w pel* [id number] 11/22/2024 1:54 PM FINDINGS: Tubes, catheters and devices: The prosthesis appears near anatomic in positioning. No parallel lucencies adjacent to the prosthesis are seen to suggest loosening. No acute fractures, subluxation, nor dislocation. Bones/joints: Right hip arthroplasty is present. Soft tissues: Subcutaneous emphysema are present from recent surgery. Previously repaired right inguinal hernia with mesh tacks noted. XR/XR pelvis 1-2V* [id number] IMPRESSION: Status post recent right hip arthroplasty without complication.
[2025-01-18] MEDS: fentaNYL 50 mcg/mL INJ 2mL IVP (14:21)
--- NOTE | 2025-01-18 14:23 | P.OP_ITS ---
Operative Report Date of procedure: January 18, 2025 Pre-op diagnosis: Severe degenerative osteoarthritis right hip Post-op diagnosis: Severe degenerative osteoarthritis right hip Post-op findings: Large osteophytes and complete denudement of cartilage with abnormal femoral head Procedure done: Right total hip arthroplasty Implants: The Adalberto total hip system with a size 52 mm by E alpha code Trident II Tritanium acetabular shell with an MDM liner size 42 mm inner diameter by E alph a code.? A size 5 Accolade II 127 degree neck angle hip stem with a size 28 mm x +0 mm femoral head and a yazdanism MDM X3 insert size 28 mm x 42E Specimens removed/disposition: Femoral head, disposed of Pathology: None Surgeon: Jennifer Smith MD Certified Registered Dental Assistant: Bing Reaves, nurse practitioner, who services were required for positioning, exposure, manipulation, and retraction Anesthesia: Spinal (With MAC, ASA 3) Estimated blood loss (mL): 350 IV fluids (mL): 1,000 Urine output (mL): 150 Complications: None Findings: Severe degenerative osteoarthritis with femoral head deformity, osteophytes, and complete denudement of cartilage. Condition: stable Disposition: PACU (Then admitted to floor under observation status for postoperative rehabilitation and pain management) Brief History: This 69-year-old woman presented with complaints of severe hip pain. She fell on her hip about a year prior to being seen in the office. She had severe difficulty with any activities of daily living. She had limited range of motion and pain with any range of motion. She had difficulty walking. After discussion, she wished to proceed with right total hip arthroplasty. Risks and complications were discussed with her, and consents were signed. On the morning of surgery, further opportunity was given for questioning and discussion. Procedure: Patient was brought to the operating theater.? She was transferred to the operating room table and subsequently administered a spinal anesthesia with MAC, ASA 3. This was well-tolerated.? Following administration of adequate anesthesia, the patient was placed in full lateral position and held in position with a pegboard.? The patient's right lower extremity was then prepped and draped in usual fashion utilizing DuraPrep.? It was draped free.? Following prepping and draping, a surgical pause was performed.? At the time of surgical pause, we identified the site and side of surgery.? We also identified the patient and preoperative surgical markings.?The patient's operative leg was compared to the opposite leg as a length comparison.? Confirmation was made of equipment availability.? Additionally, the patient's preoperative IV antibiotic, clindamycin 900 mg, and TXA administration was confirmed as well.? X-rays were also reviewed. Following the surgical pause, an incision was made centering over the patient's greater trochanter continuing proximally and distally as necessary to allow access to the hip joint.? Dissection continued through skin and soft tissues using a scalpel, and hemostasis was obtained using electrocautery. The tensor fascia kehinde was identified and incised longitudinally.? Sciatic nerve was identified and protected throughout the surgical procedure.? A Charnley U retractor was placed after the tensor fascia kehinde had been incised longitudinally, and the sciatic nerve had been identified. The hip was internally rotated, and the piriformis muscle was identified and tagged. Piriformis muscle along with the remaining short external rotators were then incised from the posterior aspect of the hip joint.? These were retracted posteriorly.? The capsule was entered in a T-type fashion with the edges being tagged, and subsequently, the hip was dislocated. The labrum, which which was degenerative, torn, and with significant synovitis, was excised with further excision accomplished once the femoral head was removed.? Following hip dislocation, a femoral neck osteotomy was accomplished in the appropriate position.??Femoral head was noted to be very deformed with significant femoral head collapse. There was essentially no normal anatomy left to the femoral head. We then evaluated the acetabulum. The femur was retracted anteriorly.? Soft tissues were retracted, and the labrum was further removed. We then began reaming.? Once the femoral head was removed, there was noted to be significant loss of cartilage within the acetabulum. In fact, there was no normal femoral head to measure for sizing. We reamed to a size 51 to allow for a size 52 acetabular shell. The size 52 mm acetabular shell was impacted into position without difficulty. It was noted to seat nicely.? The MDM liner was then impacted into position with care being taken to assure it seated appropriately. It was noted that the acetabulum matched the bony anatomy.? The cup was noted to seat nicely and had good fixation upon impact. Attention was directed to the proximal femur.? The proximal femur was lifted out of the wound.? A canal finder was passed after the box chisel.? The reamer was used to lateralize.? We then began broaching. We broached sequentially to a size 5 Accolade II broach. Trial was accomplished with a +0 mm offset femoral head. The hip was again reduced and placed through range of motion. The hip was stable at 90 degrees of flexion with 80 degrees of internal rotation and 30 degrees of adduction. It was also stable to external rotation and to toe hanging. Leg lengths were felt to be restored. Therefore, trial components were removed after the hip was dislocated. The size 5 Accolade II 127 degree neck angle hip stem was impacted into position without difficulty and onto this was placed a +0 mm x 28 mm femoral head which had been assembled into the [facility] insert size 42E.? With a +0 mm femoral head, we had the above-noted stability.? The stem was noted to seat nicely prior to placement of the femoral head.? The wound was copiously irrigated with 20 mL of Betadine and 500 mL of normal saline mixed together.? Subsequently, we suctioned this out and irrigated the wound copiously with lactated Ringer's.? At this time, with all components in appropriate position, the hip was reduced.? Following reduction of the prosthesis once again, we confirmed the stability of the hip.? Leg lengths were also felt to be satisfactory. Exparel was injected. Being satisfied with the prosthesis, attention was directed to closure.? Closure was accomplished with 0 Vicryl in the capsular tissues.? Piriformis was reattached with 0 Vicryl as well.? Tensor fascia kehinde was closed with 0 Vicryl in an interrupted fashion.? The subcutaneous tissues were closed with 2-0 Monocryl STRATAFIX.? Vancomycin powder and a Gelfoam thrombin mixture was placed into the wound as well.? The skin was closed with a running 3-0 Monocryl strata fix followed by Dermabalvaro Zelaya and Jannie. The patient was placed in an abduction pillow.? Patient was transferred off the operative bed and was brought to the recovery room in a satisfactory condition. Related Problem List Diagnoses (1) Primary osteoarthritis of right hip:
--- NOTE | 2025-01-18 14:55 | ANE.PACU2 ---
Inpatient post-anesthesia follow up: Airway intact: Yes Vital signs: Temperature 97.3 F Pulse Rate 77 Respiratory Rate 18 Blood Pressure 90/58 Pulse Oximetry 97 Oxygen Delivery Me thod Room Air Oxygen Flow Rate Fraction of Inspir ed Oxygen Hydration adequate: Yes Nausea and vomiting: Yes Pain level: 1 Mental status: Baseline
[2025-01-18] MEDS: CELEcoxib 200 mg Capsule PO (16:07)
[2025-01-18] MEDS: TRAMadol 50 mg Tablet PO ×2 (16:07→23:56)
[2025-01-18] MEDS: iron polysaccharide complex 150 mg Capsule PO (17:35)
[2025-01-18] MEDS: sennosides-docusate Tablet 2 TAB PO (17:35)
[2025-01-18] MEDS: calcium carbonate 500 mg Chew Tablet 1000 MG PO (17:35)
[2025-01-18] MEDS: chlorhexidine gluconate 0.12% Btl 473 mL 30 ML MUCOUS MEM ×2 (17:35→20:03)
[2025-01-18] MEDS: escitalopram 10 mg Tablet 20 MG PO (17:35)
[2025-01-18] MEDS: sodium chloride 0.9% 1,000 ML 100 ML IV (17:36)
--- NOTE | 2025-01-18 18:04 | PC.NURSE ---
Patient was resting comfortably after arriving from PACU. Around 1600 patient had lots of pain, BP remained soft. This nurse medicated with appropriate medications to not drop the BP further. Dr. Smith was then notified and a 500ml bolus ordered and administered and maintenance fluids started after. Patient's BP is improving. Pain is now well controlled. Patient currently sitting up in bed visiting with family.
[2025-01-18] MEDS: oxyCODONE 5 mg IR Tab/Cap PO (19:56)
[2025-01-19] VITALS (7 sets, daily range): BP systolic 86–101; BP diastolic 50–60; PULSE 61–71; RESP 16–18; TEMP 36.7–37.1; O2SAT 93–96
[2025-01-19] MEDS: sodium chloride 0.9% 1,000 ML 100 ML IV (02:48)
[2025-01-19] MEDS: oxyCODONE 5 mg IR Tab/Cap PO ×2 (03:47→08:18)
[2025-01-19] MEDS: clindamycin 900 MG/50 ML PREMIX 100 MG IV ×2 (03:48→11:42)
[2025-01-19 06:39] LABS: Basophils % 0.5 %; Eosinophils # 0.1 10^3/uL (0.0-0.8); Eosinophils % 1.6 %; Hematocrit 26.8 % (36-47); Lymphocytes # 1.4 10^3/uL (0.8-4.8); Lymphocytes % 19.4 %; Mean Corpuscular HGB Conc 32.5 g/dL (30-55); Mean Corpuscular Hemoglobin 33.3 pg (27-33); Mean Corpuscular Volume 102.7 fl (85-98); Mean Platelet Volume 9.2 fL (7.4-10.4); Monocytes # 0.6 10^3/uL (0.2-0.9); Monocytes % 8.2 %; Neutrophils # 5.18 10^3/uL (1.8-7.7); Nucleated Red Blood Cells % 0 %; Platelet Count 234 10^3/cmm (157-399); Red Blood Count 2.61 10^6/uL (3.85-5.65); Red Cell Distribution Width 13.9 % (12.1-15.1); White Blood Count 7.41 10^3/uL (3.29-11.43)
[2025-01-19 06:52] LABS: Blood Urea Nitrogen 10 mg/dL (8-23); Calcium 8.4 mg/dL (8.5-10.5); Carbon Dioxide 23 mmol/L (22-29); Chloride 101 mmol/L (98-107); Creatinine Clr Calc Pharmacy 66.8042; Glomerular Filtration Rate 99.7 mL/min (90-130); Glucose 118 mg/dL (65-115); Osmolality Calculated 272 mOsm/kg (285-295); Sodium 131 mmol/L (136-145)
[2025-01-19] MEDS: loratadine 10 mg Tablet PO (08:18)
[2025-01-19] MEDS: spironolactone 25 mg Tablet PO (08:18)
[2025-01-19] MEDS: multivitamin therapeutic Tablet 1 TAB PO (08:18)
[2025-01-19] MEDS: levothyroxine 175 mcg Tablet PO (08:19)
[2025-01-19] MEDS: iron polysaccharide complex 150 mg Capsule PO (08:19)
[2025-01-19] MEDS: aspirin 325 mg EC Tablet PO (08:19)
[2025-01-19] MEDS: cholecalciferol (vitamin D3) 1,000 unit Tablet 1000 UNIT PO (08:19)
[2025-01-19] MEDS: sennosides-docusate Tablet 2 TAB PO (08:19)
[2025-01-19] MEDS: escitalopram 10 mg Tablet 20 MG PO (08:19)
[2025-01-19] MEDS: calcium carbonate 500 mg Chew Tablet 1000 MG PO (08:19)
[2025-01-19] MEDS: CELEcoxib 200 mg Capsule PO (08:20)
[2025-01-19] MEDS: acetaminophen 1,000 MG/100 ML PIGGYBACK 400 MG IV (08:20)
[2025-01-19] MEDS: flecainide 100 mg Tablet 50 MG PO (08:24)
[2025-01-19] MEDS: chlorhexidine gluconate 0.12% Btl 473 mL 30 ML MUCOUS MEM ×2 (08:24→12:22)
[2025-01-19] MEDS: mupirocin oint 22 gm 1 APPLIC NASAL (08:29)
--- NOTE | 2025-01-19 13:03 | PM.DCS ---
Discharge Providers Date of Admission: 01/18/25 13:59 Date of Discharge: January 19, 2025 Attending Provider at Admission: Jennifer Smith MD Attending Provider at Discharge: Jennifer Smith MD Primary Care Provider: Garo Lord MD Diagnoses at Discharge Discharge Diagnosis (1) Primary osteoarthritis of right hip: Status: Acute (2) S/P total right hip arthroplasty: Status: Acute Permanent problem details: Date of procedure: January 18, 2025 Diagnosis: Severe degenerative osteoarthritis right hip Procedure done: Right total hip arthroplasty Implants: The Adalberto total hip system with a size 52 mm by E alpha code Trident II Tritanium acetabular shell with an MDM liner size 42 mm inner diameter by E alpha code. A size 5 Accolade II 127 degree neck angle hip stem with a size 28 mm x +0 mm femoral head and a rastafarian MDM X3 insert size 28 mm x 42E Reason for Visit Reason for Visit: M16.11 Brief History: This 69-year-old woman presented with complaints of severe hip pain. She fell on her hip about a year prior to being seen in the office. She had severe difficulty with any activities of daily living. She had limited range of motion and pain with any range of motion. She had difficulty walking. After discussion, she wished to proceed with right total hip arthroplasty. Risks and complications were discussed with her, and consents were signed. On the morning of surgery, further opportunity was given for questioning and discussion. Hospital Course Hospital Course Patient was admitted under observation status following same-day total hip arthroplasty. She did well, but blood pressure was low requiring a bolus. The patient then received maintenance fluids, and her pressure stabilized. At the time she was seen the morning following surgery, she had no significant complaints of hypotension. She had worked with physical therapy and was felt to be safe for discharge to home. Patient was comfortable with this. She was advised to maintain slower positional changes. She understood and was discharged home to follow-up in the office as scheduled. Physical Exam Const: COMMON NORMALS: no acute distress, average body habitus, patient oriented x3 and alert GENERAL APPEARANCE: cooperative and comfortable ORIENTATION/CONSCIOUSNESS: Yes awake HENMT: COMMON NORMALS: normocephalic and atraumatic HEAD & SCALP: normocephalic and atraumatic Eye: GENERAL EYE: appearance normal, both eyes and all related structures Chest: COMMONS NORMALS: normal inspection of the chest Resp: COMMON NORMALS: normal respiratory effort EFFORT & INSPECTION: Yes able to speak in complete sentences and Yes symmetric chest movement Extremity: RIGHT LOWER EXTREMITY: Yes hip joint (Silverlon dressing is dry and intact) Right hip: Yes inspection (No ecchymosis), Yes palpation (No significant tenderness), Yes ROM (Not evaluated) and Yes neurovascular exam (Intact distally) Neuro: COMMON NORMALS: patient oriented x3 SENSORIUM/ORIENTATION: Yes alert Psych: COMMON NORMALS: mental status grossly normal APPEARANCE: Yes grossly normal ATTITUDE: Yes calm and Yes engaged ATTENTION/CONCENTRATION: Yes attention grossly intact Skin: COMMON NORMALS: no rashes or lesions noted GENERAL SKIN EXAM: no rashes or lesions noted Urinary Catheter Management: Leiva: Cath Placed During This Visit: yes, but has since been removed by the nurse Reason for Continuing Indwelling Catheter: Decision to DC Catheter Urinary Catheter Date of Insertion: 01/18/25 Urinary Catheter Time of Insertion: 11:20 Date Urinary Catheter Removed: 01/19/25 Time Urinary Catheter Discontinued: 05:55 Discharge Data Studies Completed and Pending Completed Studies During Hospitalization Category Date Time Status XR pelvis 1-2V* 90021 Routine Exams 01/18/25 14:11 Completed Radiology Impressions Pelvis X-Ray 01/18/25 14:11 IMPRESSION: Status post recent right hip arthroplasty without complication. Laboratory Results WBC 7.41 10^3/uL (3.29-11.43) 01/19/25 06:14 RBC 2.61 10^6/uL (3.85-5.65) L 01/19/25 06:14 Hgb 8.70 g/dL (11.27-16.99) L 01/19/25 06:14 Hct 26.8 % (36-47) L 01/19/25 06:14 MCV 102.7 fl (85-98) H 01/19/25 06:14 MCH 33.3 pg (27-33) H 01/19/25 06:14 MCHC 32.5 g/dL (30-55) 01/19/25 06:14 RDW 13.9 % (12.1-15.1) 01/19/25 06:14 Plt Count 234 10^3/cmm (157-399) 01/19/25 06:14 MPV 9.2 fL (7.4-10.4) 01/19/25 06:14 Neut % (Auto) 70.0 % 01/19/25 06:14 Lymph % (Auto) 19.4 % 01/19/25 06:14 Maury % (Auto) 8.2 % 01/19/25 06:14 Eos % (Auto) 1.6 % 01/19/25 06:14 Baso % (Auto) 0.5 % 01/19/25 06:14 Neut # (Auto) 5.18 10^3/uL (1.8-7.7) 01/19/25 06:14 Lymph # (Auto) 1.4 10^3/uL (0.8-4.8) 01/19/25 06:14 Maury # (Auto) 0.6 10^3/uL (0.2-0.9) 01/19/25 06:14 Eos # (Auto) 0.1 10^3/uL (0.0-0.8) 01/19/25 06:14 Baso # (Auto) 0.0 10^3/uL (0.0-0.1) 01/19/25 06:14 Nucleated RBC % (auto) 0 % 01/19/25 06:14 Nucleated RBCs # 0.0 /100WBC 01/19/25 06:14 Sodium 131 mmol/L (136-145) L 01/19/25 06:14 Potassium 4.0 mmol/L (3.5-5.1) 01/19/25 06:14 Chloride 101 mmol/L (98-107) 01/19/25 06:14 Carbon Dioxide 23 mmol/L (22-29) 01/19/25 06:14 Anion Gap 11.0 (5-19) 01/19/25 06:14 BUN 10 mg/dL (8-23) 01/19/25 06:14 Creatinine 0.6 mg/dL (0.5-0.9) 01/19/25 06:14 GFR Calculation 99.7 mL/min (90-130) 01/19/25 06:14 Glucose 118 mg/dL (65-115) H 01/19/25 06:14 Calculated Osmolality 272 mOsm/kg (285-295) L 01/19/25 06:14 Calcium 8.4 mg/dL (8.5-10.5) L 01/19/25 06:14 Vitals Last Vital Signs Temp 98.7 F 01/19/25 11:00 Pulse 71 01/19/25 11:00 Resp 17 01/19/25 11:00 BP 96/52 01/19/25 12:04 Pulse Ox 93 01/19/25 11:00 O2 Del Method Room Air 01/19/25 11:00 Discharge Plan Discharge Patient Disposition: Home Health Service Condition: Stable Prescriptions: New celecoxib 200 mg Capsule 200 mg PO 1XD 30 Days Qty: 30 0RF acetaminophen 500 mg Tablet 1,000 mg PO Q8H 15 Days Qty: 90 0RF aspirin 325 mg Tablet,Delayed Release (Dr/Ec) 325 mg PO DAILY 30 Days Qty: 30 0RF oxycodone 5 mg Tablet 5 mg PO Q4H PRN (Reason: Moderate To Severe Pain) 7 Days Qty: 30 0RF Continued multivitamin Tablet 1 tab PO DAILY levothyroxine 175 mcg tablet 175 mcg PO QDAY tramadol 50 mg tablet 50 mg PO .qhs spironolactone 25 mg tablet 25 mg PO QDAY flecainide 50 mg tablet 50 mg PO QDAY folic acid 1 mg tablet 1 mg PO QDAY cholecalciferol (vitamin D3) 125 mcg (5,000 unit) capsule 125 mcg PO DAILY loratadine 10 mg tablet 10 mg PO DAILY ferrous sulfate 137 mg (45 mg iron) tablet extended release 137 mg PO DAILY escitalopram oxalate [Lexapro] 20 mg Tablet 20 mg PO BID aspirin [Adult Low Dose Aspirin] 81 mg tablet,delayed release (DR/EC) 81 mg PO DAILY Qty: 30 0RF Discharge Orders: Discharge Order (Routine); Ordered 01/19/25 Ordered By: Jennifer Smith Other Ambulatory Orders: DME: Walker (Order) Location: None Selected Ordered By: Jennifer Smith Referrals: [facility] ([facility]) [Outside] Garo Lord MD [Primary Care Provider, Family Practice] - 01/24/25 11:15 am Referral Note: blood pressure being low. Jennifer Smith MD [Physician, Orthopedics] - 01/31/25 2:45 pm Discharge Diet: Advance as tolerated, Usual diet and As Directed Discharge Activity: Increase activity as tolerated, Limit activity as instructed, Use walker/crutches as instructed and As per PT/OT instructions Patient Instructions: Aspirin (By mouth), Oxycodone, Rapid Release (By mouth), Celecoxib (By mouth), Acute Wound Care (DC), Precautions after Total Joint Replacement Surgery (DC), Total Hip Replacement (DC), Opioid Safety, Post Anesthesia Care Activity Restrictions/Additional Instructions: Posterior precautions as instructed. You may ambulate weightbearing as tolerated. You may shower, but do not soak your hip in water. Physical therapy for strengthening, gait training, and ambulation. Please check your blood pressure in the morning and before you go to bed. Record the readings and bring them to your primary care appointment. Please raise out of bed slowly and stand only if you do not feel dizzy. Discharge Attestations Time Spent in Discharge Care*: greater than 30 min Specific Discharge Activities: educating patient, documenting/other paperwork and evaluating patient/reviewing data Status at Discharge: Cognitive status at discharge: cognitively intact, Behavioral status at discharge: cooperative, Quality Metrics Clinical Quality Measures [ No reported AMI, CVA or VTE this stay] Coding Level of Care Code Acute Code for Chg Fwd Diagnoses Primary osteoarthritis of right hip M16.11 S/P total right hip arthroplasty Z96.641
[2025-01-19] MEDS: acetaminophen 500 mg Tablet 1000 MG PO (14:10)
== END 2025-01-19 14:43 | disposition home health service (06) ==
LOC: MEDSURG 13:59
PROVIDERS: Admitting Provider Specialist; PCP Family Medicine; Visit Provider Specialist
PROC: (CPT 27130; principal; 2025-01-18 11:10)
DX: M16.11 Unilateral primary osteoarthritis, right hip (principal); M25.751 Osteophyte, right hip; M94.8X8 Other specified disorders of cartilage, other site; Q65.89 Other specified congenital deformities of hip; Z79.82 Long term (current) use of aspirin; R00.0 Tachycardia, unspecified; F41.9 Anxiety disorder, unspecified
CPT/HCPCS: 27130; 51702; 72170; 80048; 85025; 97110; 97116; 97161; 97165; 97530; A4216; C1776; G0378; J0131; J0666; J2704; J3010; J3370; J3490; J7030; J9999

== ENCOUNTER → 2025-01-31 14:57 | Outpatient (BNVA) | payer MEDICARE, OTHER, SELFPAY | PROVIDERS: PCP Family Medicine; Visit Provider Specialist | DX: Z98.890 Other specified postprocedural states (principal); Z96.641 Presence of right artificial hip joint | CPT/HCPCS: 73502; 99024 ==

== ENCOUNTER → 2025-03-28 08:58 | Outpatient (BNVA) | payer MEDICARE, OTHER, SELFPAY | PROVIDERS: PCP Family Medicine; Visit Provider Specialist | DX: Z98.890 Other specified postprocedural states (principal); Z96.641 Presence of right artificial hip joint | CPT/HCPCS: 73502; 99024 ==

== ENCOUNTER 2025-08-09 08:48 | Outpatient (CLI) | payer MEDICARE, OTHER, SELFPAY ==
--- NOTE | 2025-08-09 08:51 | MM_ITS ---
WS: [id number] VIEWS: MLO and CC views both breasts. 3D digital tomosynthesis is also included in this exam. Comparison made with prior exam of 10/08/2018, 11/10/2019, 12/10/2020, 03/17/2022, 04/16/2023, 08/07/2024.. Findings: The breasts are heterogeneously dense, which may obscure small masses. No suspicious mass, tumor calcification or architectural distortion. MM/MM scr BI tomosynthesis [id number] Impression: BI-RADS: 2 - Benign FOLLOW-UP: 1 Year Follow-up This mammogram was also analyzed by the Computer Aided Detection System R2 Imag e Audio Visual Collections Coordinator.
== END 2025-08-09 08:49 | disposition home or self-care (01) ==
LOC: RAD 08:48
PROVIDERS: PCP Family Medicine; Visit Provider Family Medicine
DX: Z12.31 Encounter for screening mammogram for malignant neoplasm of breast (principal); R92.333 Mammographic heterogeneous density, bilateral breasts
CPT/HCPCS: 77063; 77067